=== PATIENT | male | born 1955 | race Caucasian/White ===

== ENCOUNTER 2023-05-26 08:53 | Day surgery (SDC) | payer BC ==
[2023-05-25 08:48] VITALS: BMI 29.3
[~2023-05-26 08:53] MED LIST: LACTATED RINGERS 1,000 ML IV SCH; LIDOCAINE 1% (10MG/ML) FOR IV START INTRADERMA PRN; LIDOCAINE 2% (PF) 20 MG/ML 5 ML VIAL ONE
[2023-05-26] MEDS ORDERED: LACTATED RINGERS 1,000 ML IV ONE ×2 (09:09)
[2023-05-26 09:13] VITALS: TEMP 97.8
[2023-05-26] MEDS ORDERED: PROPOFOL 10 MG/ML 20 ML VIAL IV ONE (09:44)
--- NOTE | 2023-05-26 09:45 | P.GSHP ---
History of Present Illness H&P Date: 05/26/23 Chief Complaint: Screening colonoscopy This is a 59-year-old male presents safer screening colonoscopy. Patient denies a significant GI complaints. Past Medical History Past Medical History: Hyperlipidemia, Hypertension History of Any Multi-Drug Resistant Organisms: None Reported Past Surgical History: Tonsillectomy Additional Past Surgical History / Comment(s): colonoscopy Past Anesthesia/Blood Transfusion Reactions: No Reported Reaction Smoking Status: Never smoker - Past Family History Mother Family Medical History: No Reported History Medications and Allergies Home Medications Medication Instructions Recorded Confirmed Type Aspirin 81 mg PO HS 06/30/17 05/25/23 History Atorvastatin [Lipitor] 20 mg PO HS 06/30/17 05/25/23 History amLODIPine BESYLATE/BENAZEPRIL 1 cap PO HS 06/30/17 05/25/23 History [Lotrel 5-20 mg Capsule] Allergies Allergy/AdvReac Type Severity Reaction Status Date / Time No Known Allergies Allergy Verified 05/25/23 08:24 Surgical - Exam Vital Signs Temp Pulse Resp BP Pulse Ox 97.8 F 87 18 156/86 98 05/26/23 09:08 05/26/23 09:08 05/26/23 09:08 05/26/23 09:08 05/26/23 09:08 - General well developed, well nourished, no distress - Eyes PERRL - ENT normal pinna - Neck no masses - Respiratory normal expansion - Cardiovascular Rhythm: regular - Abdomen Abdomen: soft, non tender Assessment and Plan Assessment: We'll perform screening colonoscopy.
--- NOTE | 2023-05-26 09:54 | P.OP ---
Date of Procedure: 05/26/23 Preoperative Diagnosis: Screening colonoscopy Postoperative Diagnosis: Mild diverticulosis Procedure(s) Performed: Colonoscopy Anesthesia: MAC Surgeon: Man Wallis Pathology: none sent Condition: stable Disposition: PACU Description of Procedure: The patient's placed on the endoscopy table in the lateral position. He received IV sedation. Digital rectal exam was performed. This revealed no abnormalities. Flexible colonoscope was then placed patient anus and passed throughout the entire colon. The ileocecal valve was visualized. Cecum, ascending and transverse colon appeared normal. The descending and sigmoid colon had a few scattered diverticula. Scope was then brought back the rectum and this appeared normal. Scope withdrawn for patient.
[2023-05-26 10:41] VITALS: BP 125/85; PULSE 64; RESP 20
== END 2023-05-26 10:25 | disposition home or self-care (01) ==
LOC: ORWHC2ENDO 08:53
PROVIDERS: ATTEND Surgery
DX: Z12.11 Encounter for screening for malignant neoplasm of colon (principal); K57.30 Diverticulosis of large intestine without perforation or abscess without bleeding; I10 Essential (primary) hypertension; E78.5 Hyperlipidemia, unspecified; Z79.82 Long term (current) use of aspirin; Z79.899 Other long term (current) drug therapy
CPT/HCPCS: 45378; J2704

== ENCOUNTER → 2024-11-01 | Outpatient (CLI) | payer MEDICARE ==
--- NOTE | 2024-11-01 13:23 | XR ---
EXAMINATION TYPE: XR lumbar spine 2 or 3V DATE OF EXAM: 11/01/2024 CLINICAL INDICATION: Male, 68 years old with history of M25.512,M19.012, pain TECHNIQUE: Frontal and lateral images of the lumbar spine are obtained. COMPARISON: None FINDINGS: There are 5 lumbar type vertebral bodies identified. The lumbar spine shows slight grade 1 retrolisthesis of L4 on L5. Vertebral body heights are within normal limits. Is moderate to severe disc space narrowing most prominent at the right L4-L5 level . Mild to moderate disc space narrowing and anterior spurring at the L3-L4 levels. [id number] overlying arterial vascular calcificatio n is present. IMPRESSION: As above. [facility], , 11/01/2024 1:21 PM
--- NOTE | 2024-11-01 13:26 | XR ---
EXAMINATION TYPE: XR shoulder complete LT DATE OF EXAM: 11/01/2024 CLINICAL INDICATION: Male, 68 years old with history of M25.512,M19.012, pain TECHNIQUE: Three views of the left shoulder are obtained. COMPARISON: None. FINDINGS: There is no acute fracture/dislocation evident in the left shoulder. Moderate narrowing at the acromioclavicular joint. The glenohumeral joint is preserved. The visualized ribs are intact and unremarkable. IMPRESSION: As above. [facility], , 11/01/2024 1:24 PM
== END | disposition home or self-care (01) ==
LOC: RADXRMAIN 12:32
PROVIDERS: ATTEND Family Medicine
DX: M19.012 Primary osteoarthritis, left shoulder (principal); M51.360 Other intervertebral disc degeneration, lumbar region with discogenic back pain only; M43.16 Spondylolisthesis, lumbar region
CPT/HCPCS: 72100